=== PATIENT | female | born 1990 | race American Indian/Alaskan Native ===

== ENCOUNTER 2017-05-19 16:19 | Emergency (ER) | payer OTHER ==
[2017-05-19] MEDS ORDERED: HYDROGEN PEROXIDE ONE (18:11)
--- NOTE | 2017-05-19 18:53 | Emergency Department Report ---
ED ENT HPI - General Chief complaint: Earache Stated complaint: HEARING LOSS IN LEFT EAR Time Seen by Provider: 05/19/17 18:48 Source: patient Mode of arrival: Ambulatory Limitations: No Limitations - History of Present Illness Initial comments: Patient presents to ED with c/o left sided hearing loss x 1 week; denies ear pain, bleeding or drainage, recent injuries or trauma, fevers, sore throat and painful swallowing MD complaint: other (Left hearing loss) Onset/Timin -: week(s) Location: L ear Severity scale (0 -10): 0 Consistency: constant Associated Symptoms: hearing loss. denies: fever, cough, gum swelling, toothache, pain with swallowing, sore throat, tinnitus, discharge from ear, rhinorrhea - Related Data Previous Rx's Medication Instructions Recorded Last Taken Type Vit Calc,Iron,Folic 1 each PO QDAY #30 tablet 05/16/16 Unknown Rx [ Vitamins] Debrox Ear Wax System See Protocol OTIC QHS 3 Days #1 box 05/19/17 Unknown Rx Doxylamine Succinate/Vit B6 1 each PO QHS PRN #30 tablet. 05/19/17 Unknown Rx [Elvis Aguilera 10-10 mg Tablet] Allergies Allergy/AdvReac Type Severity Reaction Status Date / Time No Known Allergies Allergy Verified 05/16/16 12:21 ED Dental HPI - General Chief complaint: Earache Stated complaint: HEARING LOSS IN LEFT EAR Time Seen by Provider: 05/19/17 18:48 Source: patient Mode of arrival: Ambulatory Limitations: No Limitations - Related Data Previous Rx's Medication Instructions Recorded Last Taken Type Vit Calc,Iron,Folic 1 each PO QDAY #30 tablet 05/16/16 Unknown Rx [ Vitamins] Debrox Ear Wax System See Protocol OTIC QHS 3 Days #1 box 05/19/17 Unknown Rx Doxylamine Succinate/Vit B6 1 each PO QHS PRN #30 tablet. 05/19/17 Unknown Rx [Elvis Aguilera 10-10 mg Tablet] Allergies Allergy/AdvReac Type Severity Reaction Status Date / Time No Known Allergies Allergy Verified 05/16/16 12:21 ED Review of Systems ROS: Stated complaint: HEARING LOSS IN LEFT EAR Other details as noted in HPI Constitutional: denies: chills, diaphoresis, fever, malaise, weakness Eyes: denies: eye pain, eye discharge, vision change ENT: hearing loss, congestion. denies: ear pain, throat pain, dental pain, epistaxis Respiratory: denies: cough, orthopnea, shortness of breath, SOB with exertion, SOB at rest, stridor, wheezing Cardiovascular: denies: chest pain, palpitations, dyspnea on exertion, orthopnea , edema, syncope Gastrointestinal: denies: abdominal pain, nausea, vomiting Skin: denies: rash, lesions Neurological: denies: headache, weakness, abnormal gait, vertigo ED Past Medical Hx - Past Medical History Previous Medical History?: No - Surgical History Past Surgical History?: No - Social History Smoking Status: Never Smoker Substance Use Type: None - Medications Home Medications: Home Medications Medication Instructions Recorded Confirmed Last Taken Type Vit Calc,Iron,Folic 1 each PO QDAY #30 tablet 05/16/16 Unknown Rx [ Vitamins] Debrox Ear Wax System See Protocol OTIC QHS 3 Days #1 box 05/19/17 Unknown Rx Doxylamine Succinate/Vit B6 1 each PO QHS PRN #30 tablet. 05/19/17 Unknown Rx [Elvis Aguilera 10-10 mg Tablet] ED Physical Exam - General Limitations: No Limitations General appearance: alert, in no apparent distress - Head Head exam: Present: atraumatic, normocephalic, normal inspection - Eye Eye exam: Present: normal appearance, PERRL, EOMI Pupils: Present: normal accommodation - ENT ENT exam: Present: normal exam, normal orophraynx, mucous membranes moist, normal external ear exam, other (Left TM not visualized because of cerumen blocking it). Absent: mucous membranes dry - Neck Neck exam: Present: normal inspection, full ROM. Absent: tenderness, lymphadenopathy - Respiratory Respiratory exam: Present: normal lung sounds bilaterally. Absent: respiratory distress, wheezes, rales, rhonchi, stridor, accessory muscle use, decreased breath sounds, prolonged expiratory - Cardiovascular Cardiovascular Exam: Present: regular rate, normal rhythm, normal heart sounds - Neurological Exam Neurological exam: Present: alert, oriented X3, normal gait - Psychiatric Psychiatric exam: Present: normal affect, normal mood ED Course Vital Signs 05/19/17 16:47 Temperature 99.1 F Pulse Rate 85 Respiratory 16 Rate Blood Pressure 104/72 O2 Sat by Pulse 99 Oximetry - Ear Wax Removal Left Ear Cerumenolytic Used: Other (Hydrogen peroxide) Ear Canal Irrigated by: other (PA) Ear Canal Irrigated With: warm saline with H2O2 using syringe/angiocath Ear Canal(s) Curettaged: wire loops Results: Re-examined: some cerumen remains TM Visible: TM(s) intact, normal appe Ear Canal: atraumatic Patient Tolerated Procedure: well Complications: no problems Additional Comments: Told patient she will have to use Debrox to help remove remainder of cerumen from ear, she verbalized understanding ED Medical Decision Making - Medical Decision Making Told patient to follow up with PCP if unable to remove remainder of cerumen even with Debrox, she verbalized understanding; patient states she is and wants a refill on her nausea medication, she said she will be following up with her OB this week but needs a refill to help with nausea until then, so gave refill of Elvis Critical care attestation.: If time is entered above; I have spent that time in minutes in the direct care of this critically ill patient, excluding procedure time. ED Disposition Clinical Impression: Hearing loss due to cerumen impaction Qualifiers: Laterality: left Qualified Code(s): H61.22 - Impacted cerumen, left ear Disposition: TO HOME OR SELFCARE Is pt being admited?: No Condition: Stable Instructions: Cerumen Impaction (ED) Prescriptions: Debrox Ear Wax System See Protocol OTIC QHS 3 Days #1 box Doxylamine Succinate/Vit B6 [Elvis Aguilera 10-10 mg Tablet] 1 each PO QHS PRN #30 tablet. PRN Reason: Nausea Time of Disposition: 19:17 Print Language: CHILEAN
[2017-05-19 19:30] VITALS: BP 110/68
== END 2017-05-19 19:41 | disposition home or self-care (01) ==
LOC: ED 16:19
DX: H61.22 Impacted cerumen, left ear (principal)